=== PATIENT | female | born 1995 | race Two or more races ===

== ENCOUNTER 2024-06-21 08:23 | Outpatient (CLI) | payer OTHER | END 2024-06-21 08:30 | disposition home or self-care (01) | LOC: PRENATAL 08:23 | PROVIDERS: ATTEND Obstetrics & Gynecology Maternal & Fetal Medicine | DX: O36.80X0 Pregnancy with inconclusive fetal viability, not applicable or unspecified (principal); Z36.82 Encounter for antenatal screening for nuchal translucency; Z14.8 Genetic carrier of other disease; Z3A.14 14 weeks gestation of pregnancy ==

== ENCOUNTER 2024-07-01 17:59 | Emergency (ER) | payer OTHER ==
[~2024-07-01] VITALS: Ht 162.6 cm; Wt 83.5 kg
[2024-07-01] MEDS ORDERED: FOLIC ACID0.8 M1 PO (18:14)
[2024-07-01] MEDS ORDERED: PRENA1 TRUE CO1 EACH PO (18:14)
[2024-07-01] MEDS ORDERED: ONDANSETRON HCL 2 MG/ML VIAL IM ONE (19:15)
[2024-07-01] MEDS ORDERED: FAMOtidine 10 MG/ML (4ML VIAL) IV PUSH ONE (19:15)
[2024-07-01 20:29] LABS: HEMATOCRIT 34.2 % (36.0-45.00); HEMOGLOBIN 11.6 g/dL (12.0-15.00); MEAN CELL VOLUME 77.3 fL (80.00-100.00); MEAN CORPUSCULAR HEMOGLOBIN 26.1 pg (27.00-32.0); MEAN CORPUSCULAR HGB CONC 33.8 g/dl (32.0-36.0); PLATELET COUNT 311 K/uL (150-450); RED BLOOD COUNT 4.42 M/uL (4.00-6.00); RED CELL DISTRIBUTION WIDTH 16.9 % (11.5-14.5)
== END 2024-07-01 21:17 | disposition home or self-care (01) ==
LOC: ER 18:01
PROVIDERS: General Practice
DX: O26.892 Other specified pregnancy related conditions, second trimester (principal); R42 Dizziness and giddiness; R11.2 Nausea with vomiting, unspecified; Z3A.14 14 weeks gestation of pregnancy; Z20.822 Contact with and (suspected) exposure to COVID-19

== ENCOUNTER 2024-07-30 13:23 | Outpatient (CLI) | payer OTHER ==
[~2024-07-30 13:23] MED LIST: FOLIC ACID0.8 M1 PO; PRENA1 TRUE CO1 EACH PO
== END 2024-07-30 13:25 | disposition home or self-care (01) ==
LOC: PRENATAL 13:23
PROVIDERS: ATTEND Obstetrics & Gynecology Maternal & Fetal Medicine
DX: O35.3XX0 Maternal care for (suspected) damage to fetus from viral disease in mother, not applicable or unspecified (principal); O44.00 Complete placenta previa NOS or without hemorrhage, unspecified trimester; Z14.8 Genetic carrier of other disease; O36.1999 Maternal care for other isoimmunization, unspecified trimester, other fetus; Z3A.20 20 weeks gestation of pregnancy

== ENCOUNTER 2024-08-26 18:14 | Inpatient (IN) | payer OTHER ==
[~2024-08-26] VITALS: Ht 162.6 cm; Wt 0.9 kg
[2024-08-26 18:14] VITALS: BP 113/63
[2024-08-26 19:12] LABS: INR 1.04; PARTIAL THROMBOPLASTIN TIME 26.5 SECONDS (22.0-34.0); PROTHROMBIN TIME 11.3 SECONDS (9.0-11.5)
[2024-08-26 19:16] LABS: ALBUMIN 3.2 gm/dL (3.4-5.0); BILIRUBIN TOTAL 0.27 mg/dL (0.3-1.2); CALCIUM 9.2 mg/dL (8.5-10.1); CREATININE SERUM 0.57 mg/dL (0.55-1.02); GFR 124.54; GLOBULINA 3.7 G/DL (2.4-3.5); POTASSIUM 4.13 mEq/L (3.5-5.1); TOTAL PROTEIN 6.9 gm/dL (6.4-8.2)
[2024-08-27] MEDS ORDERED: AMPICILLIN SODIUM 1,000 MG VIAL IV SCH (10:45)
[2024-08-27 11:47] VITALS: BP 107/54
[2024-08-27] MEDS ORDERED: MAGNESIUM SULFATE IN WATER 0.04 GM/ML IV.SOLN IV ONE (13:13)
[2024-08-27 15:15] VITALS: BP 122/63
[2024-08-27] MEDS ORDERED: ACETAMINOPHEN 500 MG GEL..CAP PO ONE (15:23)
[2024-08-27] MEDS ORDERED: ACETAMINOPHEN 500 MG GEL..CAP PO PRN (15:30)
[2024-08-27] MEDS ORDERED: BETAMETHASONE ACETATE,SOD PHOS 30 MG/5 ML ML IM ONE (18:45)
[2024-08-27 19:37] VITALS: BP 104/46
[2024-08-27 23:03] VITALS: BP 121/62
[2024-08-28 03:14] VITALS: BP 113/57
[2024-08-28 07:39] VITALS: BP 116/50
[2024-08-28] MEDS ORDERED: MAGNESIUM SULFATE IN WATER 500 ML IV SCH (09:45)
[2024-08-28 11:19] VITALS: BP 123/54
[2024-08-28 15:33] VITALS: BP 118/60
[2024-08-28] MEDS ORDERED: AMPICILLIN SODIUM 1,000 MG VIAL ONE (15:59)
[2024-08-28 19:48] VITALS: BP 111/60
[2024-08-28 23:16] VITALS: BP 119/53
[2024-08-29] MEDS ORDERED: FAMOtidine 40 MG TABLET PO ONE (01:30)
[2024-08-29 03:30] VITALS: BP 116/60
[2024-08-29 07:23] VITALS: BP 107/50
[2024-08-29 11:40] VITALS: BP 125/66
[2024-08-29 14:26] VITALS: BP 111/69
[2024-08-29 16:17] VITALS: BP 100/65
[2024-08-30 00:18] VITALS: BP 105/68
[2024-08-30 08:37] VITALS: BP 105/68
[2024-08-30 16:00] VITALS: BP 94/60
[2024-08-31 01:01] VITALS: BP 100/62; O2SAT 98
[2024-08-31 08:17] VITALS: BP 115/51
[2024-08-31 13:42] VITALS: BP 99/66
[2024-08-31 19:14] VITALS: BP 121/66
[2024-09-01 00:03] VITALS: BP 109/71
[2024-09-01 08:00] VITALS: BP 91/54
[2024-09-01 17:27] VITALS: BP 113/66
[2024-09-02 01:00] VITALS: BP 100/64
[2024-09-02 08:01] VITALS: BP 93/60
[2024-09-02 15:39] VITALS: BP 114/71
[2024-09-03 00:31] VITALS: BP 109/71
[2024-09-03 08:51] VITALS: BP 109/69
[2024-09-03 13:15] LABS: PH,URINE 6.5 (5.0-8.0); URINE APPEARANCE Turbid; URINE BILIRRUBIN Negative (NEGATIVE); URINE BLOOD NHT; URINE COLOR Yellow; URINE GLUCOSE Negative (NEGATIVE); URINE KETONE Negative (NEGATIVE); URINE LEUKOCYTE Large; URINE NITRATE Negative; URINE PROTEIN Trace (NEGATIVE)
[2024-09-03 13:19] LABS: URINE RBC 13.1 uL (0.0-20.8); URINE WBC 2358.7 uL (0.0-23.2)
[2024-09-03 14:03] LABS: URINE CAST 0.73 uL (0.0-1.40)
[2024-09-03 14:04] LABS: URINE YEAST FEW /hpf
[2024-09-03 15:54] VITALS: BP 103/65
[2024-09-04 01:22] VITALS: BP 122/72
[2024-09-04 08:10] VITALS: BP 121/60
[2024-09-04 15:34] VITALS: BP 105/70
[2024-09-05 00:28] VITALS: BP 112/73
[2024-09-05 08:19] VITALS: BP 108/62
[2024-09-05 16:00] VITALS: BP 110/72
[2024-09-06] VITALS: BP 103/66
[2024-09-06 08:56] VITALS: BP 111/71
[2024-09-06 15:56] VITALS: BP 118/71
[2024-09-06] MEDS ORDERED: RINGERS SOLUTION,LACTATED 1,000 ML IV SCH (18:00)
[2024-09-07] MEDS ORDERED: CEFAZOLIN SODIUM 1,000 MG VIAL IV SCH (01:00)
[2024-09-07 01:35] VITALS: BP 100/60
[2024-09-07 08:39] VITALS: BP 98/65
[2024-09-07 16:43] VITALS: BP 112/71
[2024-09-07 18:33] LABS: HEMATOCRIT 34.9 % (36.0-45.00); HEMOGLOBIN 11.6 g/dL (12.0-15.00); MEAN CELL VOLUME 80.6 fL (80.00-100.00); MEAN CORPUSCULAR HEMOGLOBIN 26.9 pg (27.00-32.0); MEAN CORPUSCULAR HGB CONC 33.3 g/dl (32.0-36.0); PLATELET COUNT 264 K/uL (150-450); RED BLOOD COUNT 4.33 M/uL (4.00-6.00); RED CELL DISTRIBUTION WIDTH 15.6 % (11.5-14.5)
[2024-09-07 23:10] VITALS: BP 90/60
[2024-09-08 08:35] VITALS: BP 99/60
[2024-09-08 16:56] VITALS: BP 102/68
[2024-09-09 00:39] VITALS: BP 96/60
[2024-09-09 07:48] VITALS: BP 95/62
[2024-09-09] MEDS ORDERED: ACETAMINOPHEN 500 MG GEL..CAP PO PRN (09:30)
[2024-09-09 16:40] VITALS: BP 99/64
[2024-09-10 01:00] VITALS: BP 96/59
[2024-09-10 08:13] VITALS: BP 102/60
[2024-09-10 12:30] VITALS: BP 128/69
[2024-09-10 16:40] VITALS: BP 116/72
[2024-09-11 00:30] VITALS: BP 116/74
[2024-09-11 07:59] VITALS: BP 109/60
[2024-09-11 15:52] VITALS: BP 110/69
[2024-09-12] VITALS: BP 102/66
[2024-09-12 08:56] VITALS: BP 106/68
[2024-09-12 15:58] VITALS: BP 100/64
[2024-09-13 00:55] VITALS: BP 93/61
[2024-09-13 07:54] VITALS: BP 109/64
[2024-09-13 15:07] VITALS: BP 111/66
[2024-09-14 00:26] VITALS: BP 104/62
[2024-09-14 08:00] VITALS: BP 108/71
[2024-09-14 16:00] VITALS: BP 110/72
[2024-09-15] VITALS: BP 96/58
[2024-09-15 09:00] VITALS: BP 96/51
[2024-09-15 17:41] VITALS: BP 111/70
[2024-09-16] VITALS: BP 90/60
[2024-09-16 08:00] VITALS: BP 90/55
[2024-09-16 17:00] VITALS: BP 94/61
[2024-09-16 23:46] VITALS: BP 97/62
[2024-09-17 08:00] VITALS: BP 100/60
[2024-09-17 15:45] VITALS: BP 102/61
[2024-09-18 02:04] VITALS: BP 105/61
[2024-09-18 09:04] VITALS: BP 87/50
[2024-09-18 09:05] VITALS: BP 87/50
[2024-09-18 20:27] VITALS: BP 106/65
[2024-09-19] VITALS: BP 100/69
[2024-09-19 08:00] VITALS: BP 105/75
[2024-09-19 16:00] VITALS: BP 104/67
[2024-09-20 00:28] VITALS: BP 94/75
[2024-09-20 08:00] VITALS: BP 138/70
[2024-09-20 15:00] VITALS: BP 131/72
[2024-09-21 00:20] VITALS: BP 104/65
[2024-09-21 08:27] VITALS: BP 102/63
[2024-09-21 17:23] VITALS: BP 116/78
[2024-09-21 23:54] VITALS: BP 97/60
[2024-09-22] MEDS ORDERED: MAGNESIUM SULFATE IN WATER 0.04 GM/ML IV.SOLN IV ONE (08:11)
[2024-09-22 09:36] LABS: URINE APPEARANCE Clear; URINE BILIRRUBIN Negative (NEGATIVE); URINE BLOOD Negative; URINE COLOR Yellow; URINE GLUCOSE Negative (NEGATIVE); URINE KETONE Negative (NEGATIVE); URINE LEUKOCYTE Moderate; URINE NITRATE Negative; URINE PROTEIN Negative (NEGATIVE)
[2024-09-22 09:40] LABS: URINE BACTERIA 1031.7 uL (0.0-1933); URINE CAST 4.12 uL (0.0-1.40); URINE EPITHELIAL CELLS 32.6 uL (0.0-38.8); URINE RBC 14.5 uL (0.0-20.8); URINE WBC 237.9 uL (0.0-23.2)
[2024-09-22 10:25] LABS: URINE MUCUS MODERATE
[2024-09-22 12:00] VITALS: BP 117/74
[2024-09-22] MEDS ORDERED: FF) RHO(D) IMMUNE GLOBULIN (POM) IM ONE (12:00)
[2024-09-22] MEDS ORDERED: MAGNESIUM SULFATE IN WATER 500 ML IV SCH (12:00)
[2024-09-22 16:00] VITALS: BP 108/71
[2024-09-22] MEDS ORDERED: MORPHINE SULFATE 4 MG/ML VIAL IV ONE (16:30)
[2024-09-22] MEDS ORDERED: CEFAZOLIN SODIUM 1,000 MG VIAL IV SCH (17:00)
[2024-09-22 20:10] VITALS: BP 122/79
[2024-09-22] MEDS ORDERED: ERYTHROMYCIN BASE OPHT 1GM EACH TUBE OP ONE (22:01)
[2024-09-22] MEDS ORDERED: OXYTOCIN 10 UNITS/ML VIAL ONE (22:01)
[2024-09-22] MEDS ORDERED: ONDANSETRON HCL 2 MG/ML VIAL IV PRN (23:15)
[2024-09-22] MEDS ORDERED: MORPHINE SULFATE 4 MG in 0.9 % SODIUM CHLORIDE 9 ML IV PRN (23:15)
[2024-09-22] MEDS ORDERED: MEPERIDINE HCL/PF 25 MG/ML VIAL IV PRN (23:15)
[2024-09-22] MEDS ORDERED: PROMETHAZINE HCL 50 MG/ML AMPUL IM PRN (23:30)
[2024-09-22] MEDS ORDERED: MEPERIDINE HCL/PF 50 MG/ML VIAL IM PRN (23:30)
[2024-09-23] MEDS ORDERED: MORPHINE SULFATE 4 MG/ML VIAL IV ONE (00:30)
[2024-09-23 02:14] VITALS: BP 119/75
[2024-09-23 07:57] LABS: HEMATOCRIT 33.3 % (36.0-45.00); HEMOGLOBIN 11.5 g/dL (12.0-15.00); MEAN CELL VOLUME 80.2 fL (80.00-100.00); MEAN CORPUSCULAR HEMOGLOBIN 27.6 pg (27.00-32.0); MEAN CORPUSCULAR HGB CONC 34.5 g/dl (32.0-36.0); PLATELET COUNT 243 K/uL (150-450); RED BLOOD COUNT 4.15 M/uL (4.00-6.00); RED CELL DISTRIBUTION WIDTH 15.1 % (11.5-14.5)
[2024-09-23 08:00] VITALS: BP 102/61
[2024-09-23] MEDS ORDERED: OxyCODONE HCL/APAP UD (PERCOCET) PO PRN (08:00)
[2024-09-23] MEDS ORDERED: PNV,CALCIUM 72/IRON/FOLIC ACID 1 TAB TABLET PO SCH (09:00)
[2024-09-23] MEDS ORDERED: DOCUSATE SODIUM 100MG CAP PO SCH (09:00)
[2024-09-23] MEDS ORDERED: SIMETHICONE 125 MG CAPSULE PO SCH (09:00)
[2024-09-23 16:07] VITALS: BP 93/60
[2024-09-24 00:55] VITALS: BP 93/68
[2024-09-24 08:10] VITALS: BP 115/67
[2024-09-24] MEDS ORDERED: IBUprofen 600 MG TABLET PO PRN (08:45)
[2024-09-24 16:02] VITALS: BP 106/68
[2024-09-25] VITALS: BP 102/67
[2024-09-25 07:45] VITALS: BP 106/67
== END 2024-09-25 16:31 | disposition home or self-care (01) | DRG 786 ==
LOC: LDR 18:14 → OB/GYN 18:14
PROVIDERS: Obstetrics & Gynecology; ADMIT Obstetrics & Gynecology; ATTEND Obstetrics & Gynecology
PROC: 4A1HXCZ Monitoring of Products of Conception, Cardiac Rate, External Approach (ICD-10-PCS; 2024-08-26)
PROC: BY4CZZZ Ultrasonography of Second Trimester, Single Fetus (ICD-10-PCS; 2024-08-29)
PROC: BU4CZZZ Ultrasonography of Uterus and Ovaries (ICD-10-PCS; 2024-08-29)
PROC: BY4CZZZ Ultrasonography of Second Trimester, Single Fetus (ICD-10-PCS; 2024-09-05)
PROC: BY4CZZZ Ultrasonography of Second Trimester, Single Fetus (ICD-10-PCS; 2024-09-12)
PROC: BU4CZZZ Ultrasonography of Uterus and Ovaries (ICD-10-PCS; 2024-09-12)
PROC: BY4CZZZ Ultrasonography of Second Trimester, Single Fetus (ICD-10-PCS; 2024-09-19)
PROC: BU4CZZZ Ultrasonography of Uterus and Ovaries (ICD-10-PCS; 2024-09-19)
PROC: 10D00Z1 Extraction of Products of Conception, Low, Open Approach (ICD-10-PCS; principal; 2024-09-22 22:00)
DX: O32.9XX0 Maternal care for malpresentation of fetus, unspecified, not applicable or unspecified (principal); O34.32 Maternal care for cervical incompetence, second trimester; O60.02 Preterm labor without delivery, second trimester; O14.92 Unspecified pre-eclampsia, second trimester; O26.872 Cervical shortening, second trimester; O23.42 Unspecified infection of urinary tract in pregnancy, second trimester; N39.0 Urinary tract infection, site not specified; O26.842 Uterine size-date discrepancy, second trimester; O36.8120 Decreased fetal movements, second trimester, not applicable or unspecified; Z3A.24 24 weeks gestation of pregnancy; Z37.0 Single live birth

== ENCOUNTER → 2024-08-26 | Emergency (ER) | payer OTHER ==
[~2024-08-26] VITALS: Ht 167.6 cm; Wt 88.0 kg
[2024-08-26 15:59] VITALS: BP 115/68; O2SAT 100
[2024-08-26 16:55] LABS: HEMATOCRIT 36.5 % (36.0-45.00); HEMOGLOBIN 12.1 g/dL (12.0-15.00); MEAN CELL VOLUME 81.2 fL (80.00-100.00); MEAN CORPUSCULAR HEMOGLOBIN 26.9 pg (27.00-32.0); MEAN CORPUSCULAR HGB CONC 33.1 g/dl (32.0-36.0); PLATELET COUNT 235 K/uL (150-450); RED BLOOD COUNT 4.49 M/uL (4.00-6.00); RED CELL DISTRIBUTION WIDTH 16.6 % (11.5-14.5)
[2024-08-26 16:59] LABS: URINE APPEARANCE Cloudy; URINE BILIRRUBIN Negative (NEGATIVE); URINE BLOOD Negative; URINE COLOR Yellow; URINE GLUCOSE Negative (NEGATIVE); URINE KETONE Negative (NEGATIVE); URINE LEUKOCYTE Large; URINE NITRATE Negative; URINE PROTEIN Negative (NEGATIVE)
[2024-08-26 17:03] LABS: URINE BACTERIA 4539.7 uL (0.0-1933); URINE EPITHELIAL CELLS 115.5 uL (0.0-38.8); URINE WBC 83.4 uL (0.0-23.2)
[2024-08-26 17:34] LABS: URINE RBC 1.1 uL (0.0-20.8)
== END | disposition still patient (30) ==
LOC: ER 15:35 → LDR 19:24 → ER 19:24
PROVIDERS: General Practice
DX: O26.852 Spotting complicating pregnancy, second trimester (principal); Z3A.24 24 weeks gestation of pregnancy